=== PATIENT | female | born 1970 | race African-American/Black ===

== ENCOUNTER 2021-01-01 11:53 | Day surgery (SDC) | payer OTHER ==
[~2021-01-01] VITALS: Ht 176.5 cm; Wt 165.0 kg
[2021-01-01] MEDS ORDERED: PROPOFOL 1% 20 ML VIAL IVP ONE (11:54)
[2021-01-01] MEDS ORDERED: LIDOCAINE/PF 2% 5 ML VIAL IM ONE (11:54)
[2021-01-01] MEDS ORDERED: SODIUM CHLORIDE 0.9% 1,000 ML IV ONE (12:00)
[2021-01-01] MEDS ORDERED: SODIUM CHLORIDE 0.9% 1,000 ML ONE (12:03)
[2021-01-01 13:00] LABS: COVID AG,FIA SOURCE NASOPHARYNGEAL
[2021-01-01] MEDS ORDERED: SITA25 PO (13:09)
[2021-01-01] MEDS ORDERED: METF-960 PO (13:09)
[2021-01-01] MEDS ORDERED: LISI-893 PO (13:09)
[2021-01-01] MEDS ORDERED: HYDR25TA2 PO (13:09)
[2021-01-01 14:22] LABS: GLUCOMETER DEV NAME(LOC) SDS.; GLUCOSE,POINT OF CARE 84 MG/DL (70-110)
== END 2021-01-01 16:10 | disposition home or self-care (01) ==
LOC: SURGERY 11:53
PROVIDERS: ATTEND Student in an Organized Health Care Education/Training Program
DX: Z12.11 Encounter for screening for malignant neoplasm of colon (principal); K63.5 Polyp of colon; K64.8 Other hemorrhoids; K64.4 Residual hemorrhoidal skin tags; E11.9 Type 2 diabetes mellitus without complications; E66.9 Obesity, unspecified; M19.90 Unspecified osteoarthritis, unspecified site; Z79.82 Long term (current) use of aspirin; F17.210 Nicotine dependence, cigarettes, uncomplicated; Z79.899 Other long term (current) drug therapy; I10 Essential (primary) hypertension; G47.30 Sleep apnea, unspecified; Z98.890 Other specified postprocedural states; Z82.49 Family history of ischemic heart disease and other diseases of the circulatory system; Z98.51 Tubal ligation status
CPT/HCPCS: 45385; 82962; 87426; 88305; C9803; J2704; J3490; J7030

== ENCOUNTER 2021-03-05 10:10 | Day surgery (SDC) | payer OTHER ==
[~2021-03-05] VITALS: Ht 175.3 cm; Wt 175.4 kg
[~2021-03-05 10:10] MED LIST: HYDR25TA2 PO; LISI-893 PO; METF-960 PO; SITA25 PO; SODIUM CHLORIDE 0.9% 1,000 ML IV ONE; SODIUM CHLORIDE 0.9% 1,000 ML ONE
[2021-03-05 11:15] LABS: COVID AG,FIA SOURCE NASOPHARYNGEAL
[2021-03-05 11:17] LABS: GLUCOMETER DEV NAME(LOC) SDS.; GLUCOSE,POINT OF CARE 136 MG/DL (70-110)
[2021-03-05] MEDS ORDERED: FentaNYL CITRATE PF 100 MCG/2 ML VIAL ONE (12:32)
[2021-03-05] MEDS ORDERED: MIDAZOLAM HCL 5 MG/ML VIAL ONE (12:32)
== END 2021-03-05 14:20 | disposition home or self-care (01) ==
LOC: SURGERY 10:10
PROVIDERS: ATTEND Student in an Organized Health Care Education/Training Program
DX: Z12.11 Encounter for screening for malignant neoplasm of colon (principal); K64.4 Residual hemorrhoidal skin tags; K64.8 Other hemorrhoids; I10 Essential (primary) hypertension; E11.9 Type 2 diabetes mellitus without complications; Z86.010 Personal history of colon polyps; Z79.899 Other long term (current) drug therapy; Z98.890 Other specified postprocedural states
CPT/HCPCS: 45378; 82962; 87426; C9803; J2250; J3010; J7030

== ENCOUNTER 2022-11-09 09:26 | Emergency (ER) | payer OTHER ==
[~2022-11-09] VITALS: Ht 175.3 cm; Wt 90.9 kg
[~2022-11-09 09:26] MED LIST changes: +METF-1211 PO; -METF-960 PO; -SODIUM CHLORIDE 0.9% 1,000 ML IV ONE; -SODIUM CHLORIDE 0.9% 1,000 ML ONE
[2022-11-09] MEDS ORDERED: LIDOCAINE 5% TRANSDERMAL PATCH TD ONE (10:45)
[2022-11-09] MEDS ORDERED: KETOROLAC TROMETHAMINE 30 MG/ML VIAL IM ONE (10:45)
[2022-11-09 11:06] LABS: BASOPHILS % (AUTO) 1.1 % (0.0-2.0); EOSINOPHILS % (AUTO) 2.4 % (1.0-6.0); HEMATOCRIT 41.8 % (36-46); HEMOGLOBIN 13.3 g/dL (12.0-16.0); LYMPHOCYTES # (AUTO) 2.8 K/uL (1.0-4.8); MEAN CORPUSCULAR HEMOGLOBIN 28.9 pg (26.0-34.0); MEAN CORPUSCULAR HGB CONC 31.8 G/dL (31.0-37.0); MEAN CORPUSCULAR VOLUME 91 fL (80-100); MONOCYTES # (AUTO) 0.5 K/uL (0.1-1.0); MONOCYTES % (AUTO) 7.8 % (2.0-9.0); NEUTROPHILS # (AUTO) 2.8 K/uL (1.8-7.7); NEUTROPHILS % (AUTO) 43.7 % (40.0-70.0); PLATELET COUNT (AUTO) 439 K/uL (150-450); RED CELL DISTRIBUTION WIDTH 14.5 % (11.5-14.5)
[2022-11-09 11:16] LABS: ANION GAP 7 mmol/L (8-16); CALCIUM, TOTAL 10.2 mg/dL (8.8-10.5); CARBON DIOXIDE 29 mmol/L (22-29); CHLORIDE 106 mmol/L (98-107); CREATININE 0.71 mg/dL (0.60-1.30); GLUCOSE,RANDOM 76 mg/dL (70-110); POTASSIUM 4.1 mmol/L (3.5-5.1); SODIUM SERUM 142 mmol/L (136-145); UREA NITROGEN, BLOOD 10 mg/dL (7-18)
[2022-11-09 11:17] LABS: GLOMERULAR FILTR. RATE CALC > 60 mL/min (>60)
[2022-11-09 11:18] LABS: B-TYPE NATRIURETIC PEPTIDE 35 pg/mL (0-100)
[2022-11-09 11:20] LABS: ALANINE AMINOTRANSFERASE 35 U/L (12-78); ALBUMIN 3.7 g/dL (3.4-5.0); ALKALINE PHOSPHATASE 140 U/L (46-116); ASPARTATE AMINOTRANSFERASE 18 U/L (15-37); BILIRUBIN,TOTAL 0.2 mg/dL (0.1-1.0); TOTAL PROTEIN, SERUM 7.9 g/dL (6.4-8.2)
[2022-11-09] MEDS ORDERED: LISI-894 PO (12:22)
[2022-11-09] MEDS ORDERED: LOVA40TA2 PO (12:22)
[2022-11-09] MEDS ORDERED: OMEP20CA12 PO (12:22)
[2022-11-09 12:28] VITALS: BP 155/73
[2022-11-09] MEDS ORDERED: IBUP-1492 PO (12:53)
[2022-11-09] MEDS ORDERED: LIDO700A15 TP (12:53)
== END 2022-11-09 13:13 | disposition home or self-care (01) ==
LOC: EMS 09:31
DX: M54.89 Other dorsalgia (principal); R07.89 Other chest pain; E11.9 Type 2 diabetes mellitus without complications; Z98.890 Other specified postprocedural states
CPT/HCPCS: 99285; 71045; 80053; 82962; 83880; 84484; 85025; 36415; 93005; 96372; J1885